=== PATIENT | female | born 1985 | race Caucasian/White ===

== ENCOUNTER 2021-06-04 12:07 | Emergency (ER) | payer BC, OTHER ==
[~2021-06-04] VITALS: Ht 182.9 cm; Wt 112.5 kg
[2021-06-04 12:20] VITALS: BP 140/73
== END 2021-06-04 12:37 | disposition left against medical advice (07) ==
LOC: ER 12:07
DX: N93.9 Abnormal uterine and vaginal bleeding, unspecified (principal); Z53.21 Procedure and treatment not carried out due to patient leaving prior to being seen by health care provider